=== PATIENT | male | born 1985 | race Caucasian/White ===

== ENCOUNTER 2018-03-14 14:19 | Emergency (ER) | payer OTHER ==
[~2018-03-14] VITALS: Ht 185.4 cm; Wt 99.8 kg
[2018-03-14 16:00] VITALS: BP 145/80
--- NOTE | 2018-03-14 16:14 | PHYS DOC ---
Past Medical History Past Medical History: No Pertinent History Past Surgical History: Other Additional Past Surgical Histo: RLQ bowel surgery age 6 Alcohol Use: None Drug Use: None Adult General Chief Complaint Chief Complaint: ABDOMINAL PAIN HPI HPI Patient is a 32 year old male presents to the ED complaining of abdominal pain times one day. States he noticed he was having left lower quadrant abdominal pain last night around dinnertime. Describes the pain as sharp. Rates the pain as 8 out of 10 at its worst. States the pain is currently a 5 out of 10. Associated symptoms include nausea. Patient has a history of bowel surgery as a kid for twisted bowel. States he usually has some loose stools per his normal. Denies blood in stool, fever, vomiting, chest pain, shortness of breath, rash, recent travel or headache. Review of Systems Review of Systems Constitutional: Denies fever or chills [] Eyes: Denies change in visual acuity, redness, or eye pain [] HENT: Denies nasal congestion or sore throat [] Respiratory: Denies cough or shortness of breath [] Cardiovascular: No additional information not addressed in HPI [] GI: Complains of abdominal pain and nausea. Denies vomiting, bloody stools or diarrhea [] : Denies dysuria or hematuria [] Musculoskeletal: Denies back pain or joint pain [] Integument: Denies rash or skin lesions [] Neurologic: Denies headache, focal weakness or sensory changes [] All other systems were reviewed and found to be within normal limits, except as documented in this note. Current Medications Current Medications Current Medications Medications (Trade) Dose Ordered Sig/Daniel Start Time Stop Time Status Last Admin Dose Admin Acetaminophen/ Hydrocodone Bitart (Lortab 5/325) 1 tab 1X ONCE 03/14/18 17:45 03/14/18 17:46 DC 03/14/18 18:22 1 TAB Info (CONTRAST GIVEN -- Rx MONITORING) 1 each PRN DAILY PRN 03/14/18 16:30 03/14/18 18:27 DC Iohexol (Omnipaque 300 Mg/ml) 75 ml 1X ONCE 03/14/18 16:30 03/14/18 16:31 DC 03/14/18 16:30 75 ML Ketorolac Tromethamine (Toradol 15mg Vial) 15 mg 1X ONCE 03/14/18 16:15 03/14/18 16:16 DC 03/14/18 10:19 15 MG Allergies Allergies Allergies Coded Allergies Type Severity Reaction Last Updated Verified No Known Drug Allergies 03/14/18 No Physical Exam Physical Exam Constitutional: Well developed, well nourished, no acute distress, non-toxic appearance. [] HENT: Normocephalic, atraumatic Eyes: PERRLA, EOMI, conjunctiva normal, no discharge. [] Neck: Normal range of motion, no tenderness, supple, no stridor. [] Cardiovascular:Heart rate regular rhythm, no murmur [] Lungs & Thorax: Bilateral breath sounds clear to auscultation [] Abdomen: Bowel sounds normal, soft, mild LLQ tenderness, no masses, no pulsatile masses. [] Skin: Warm, dry, no erythema, no rash. [] Back: No tenderness, no CVA tenderness. [] Extremities: No tenderness, no cyanosis, no clubbing, ROM intact, no edema. [] Neurologic: Alert and oriented X 3, normal motor function, normal sensory function, no focal deficits noted. [] Psychologic: Affect normal, judgement normal, mood normal. [] Current Patient Data Vital Signs Vital Signs Date Time Temp Pulse Resp B/P (MAP) Pulse Ox O2 Delivery O2 Flow Rate FiO2 03/14/18 18:22 16 03/14/18 16:00 98.4 83 145/80 (101) 98 Room Air 98.4 Lab Values Laboratory Tests Test 03/14/18 16:26 03/14/18 16:35 Urine Collection Type Void Urine Color Yellow Urine Clarity Cloudy Urine pH 7.0 Urine Specific [place] 1.015 Urine Protein Negative mg/dL (NEG-TRACE) Urine Glucose (UA) Negative mg/dL (NEG) Urine Ketones (Stick) Negative mg/dL (NEG) Urine Blood Small (NEG) Urine Nitrite Negative (NEG) Urine Bilirubin Negative (NEG) Urine Urobilinogen Dipstick 0.2 mg/dL (0.2 mg/dL) Urine Leukocyte Esterase Small (NEG) Urine RBC 6-10 /HPF (0-2) Urine WBC 5-10 /HPF (0-4) Urine Squamous Epithelial Cells Few /LPF Urine Bacteria Few /HPF (0-FEW) Urine Hyaline Casts Few /HPF Urine Mucus Mod /LPF Urine Chlamydia DNA (PCR) Negative (Negative) Neisseria gonorrhoeae DNA (PCR) Negative (Negative) White Blood Count 13.6 x10^3/uL (4.0-11.0) H Red Blood Count 4.88 x10^6/uL (4.30-5.70) Hemoglobin 15.5 g/dL (13.0-17.5) Hematocrit 45.5 % (39.0-53.0) Mean Corpuscular Volume 93 fL (79-100) Mean Corpuscular Hemoglobin 32 pg (25-35) Mean Corpuscular Hemoglobin Concent 34 g/dL (31-37) Red Cell Distribution Width 12.2 % (11.5-14.5) Platelet Count 191 x10^3/uL (140-400) Neutrophils (%) (Auto) 76 % (31-73) H Lymphocytes (%) (Auto) 13 % (24-48) L Monocytes (%) (Auto) 9 % (0-9) Eosinophils (%) (Auto) 2 % (0-3) Basophils (%) (Auto) 1 % (0-3) Neutrophils # (Auto) 10.2 x10^3uL (1.8-7.7) H Lymphocytes # (Auto) 1.8 x10^3/uL (1.0-4.8) Monocytes # (Auto) 1.2 x10^3/uL (0.0-1.1) H Eosinophils # (Auto) 0.2 x10^3/uL (0.0-0.7) Basophils # (Auto) 0.1 x10^3/uL (0.0-0.2) Sodium Level 137 mmol/L (136-145) Potassium Level 3.9 mmol/L (3.5-5.1) Chloride Level 104 mmol/L (98-107) Carbon Dioxide Level 25 mmol/L (21-32) Anion Gap 8 (6-14) Blood Urea Nitrogen 7 mg/dL (8-26) L Creatinine 1.0 mg/dL (0.7-1.3) Estimated GFR (Cockcroft-Gault) 87.7 BUN/Creatinine Ratio 7 (6-20) Glucose Level 101 mg/dL (70-99) H Calcium Level 9.1 mg/dL (8.5-10.1) Total Bilirubin 0.8 mg/dL (0.2-1.0) Aspartate Amino Transferase (AST) 27 U/L (15-37) Alanine Aminotransferase (ALT) 43 U/L (16-63) Alkaline Phosphatase 100 U/L (46-116) Total Protein 7.1 g/dL (6.4-8.2) Albumin 4.3 g/dL (3.4-5.0) Albumin/Globulin Ratio 1.5 (1.0-1.7) Lipase 133 U/L (73-393) Laboratory Tests 03/14/18 16:35 Laboratory Tests 03/14/18 16:35 EKG EKG [] Radiology/Procedures Radiology/Procedures PROCEDURE: CT ABD PELV W/ IV CONTRST ONLY PQRS Compliance statement: One or more of the following individualized dose reduction techniques were utilized for this examination: 1. Automated exposure control. 2. Adjustment of the mA and/or kV according to patient size. 3. Use of iterative reconstruction technique. Indication:LLQ PAIN TODAY. IV OMNI 300 75 MLS. NO PREVIOUS. TECHNIQUE: CT abdomen and pelvis with IV contrast with multiplanar reformats. COMPARISON: None FINDINGS: Heart is normal in size. No pericardial or pleural effusion. Clear lung bases. Liver, spleen, gallbladder, pancreas, adrenals and right kidney are within normal limits. The left kidney is edematous with mild hydroureteronephrosis secondary to 3 obstructing stones in the distal ureter and at the UVJ, the largest measuring 5 mm. No enlarged retroperitoneal or pelvic adenopathy. No free pelvic fluid or ascites. The prostate and seminal vesicles show no large mass. No bowel obstruction. 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 Urinary bladder is within normal limits. No pneumoperitoneum. No suspicious bony lesion. IMPRESSION: 1. Multiple obstructing stones in the distal left ureter causing mild hydroureteronephrosis as described above. 2. Incidental findings as described above.[] Course & Med Decision Making Course & Med Decision Making Pertinent Labs and Imaging studies reviewed. (See chart for details) []Patient's pain improved in the ED. Discussed lab and imaging findings with patient. On reexamination, abdomen is soft nontender nondistended. No peritoneal signs. Tolerating by mouth. Will discharge with Flomax, antibiotics, analgesics. Discussed follow-up this week. Patient is incarcerated but has access to medical care. Discussed reasons to return to the ED. Patient understands and agrees with plan. Adalberto Disclaimer Adalberto Disclaimer This electronic medical record was generated, in whole or in part, using a voice recognition dictation system. Departure Departure Impression: Primary Impression: Kidney stone Disposition: 01 HOME, SELF-CARE Condition: IMPROVED Referrals: UNKNOWN PCP NAME (PCP) JERRI MOJICA MD, MICHAEL M MD Patient Instructions: Kidney Stones Scripts Ibuprofen (IBUPROFEN) 800 Mg Tablet 800 MG PO PRN Q6HRS PRN for INFLAMMATION, #14 TAB Prov: JERRI DREW 03/14/18 Hydrocodone/Apap 5-325 (NORCO 5-325 TABLET) 1 Each Tablet 1 TAB PO TID for 2 Days, #6 TAB Prov: JERRI DREW 03/14/18 Tamsulosin Hcl (FLOMAX) 0.4 Mg Cap.er.24h 1 CAP PO DAILY for 7 Days, #7 CAP 0 Refills Prov: JERRI DREW 03/14/18 Ciprofloxacin Hcl (CIPRO) 500 Mg Tablet 1 TAB PO BID for 7 Days, #14 TAB Prov: JERRI DREW 03/14/18 JERRI DREW Mar 14, 2018 16:14
[2018-03-14] MEDS ORDERED: KETOROLAC 15 MG/ML VIAL. IV ONE (16:15)
[2018-03-14] MEDS ORDERED: IOHEXOL 300 MG/ML 100ML VIAL. IV ONE (16:30)
[2018-03-14] MEDS ORDERED: CONTRAST GIVEN. MC PRN (16:30)
[2018-03-14 16:36] LABS: BILIRUBIN,URINE NEGATIVE (NEG); CLARITY,URINE CLOUDY; COLOR,URINE YELLOW; NITRITE,URINE NEGATIVE (NEG); PROTEIN,URINE NEGATIVE (NEG-TRACE); UROBILINOGEN,URINE 0.2 mg/dL (0.2 mg/dL)
[2018-03-14 16:42] LABS: BASO # 0.1 x10^3/uL (0.0-0.2); BASO % 1 % (0-3); EOS # 0.2 x10^3/uL (0.0-0.7); EOS % 2 % (0-3); HEMATOCRIT 45.5 % (39.0-53.0); HEMOGLOBIN 15.5 g/dL (13.0-17.5); LYMPH # 1.8 x10^3/uL (1.0-4.8); LYMPH % 13 % (24-48); MEAN CORPUSCULAR HEMOGLOBIN 32 pg (25-35); MEAN CORPUSCULAR HGB CONC 34 g/dL (31-37); MEAN CORPUSCULAR VOLUME 93 fL (79-100); MONO # 1.2 x10^3/uL (0.0-1.1); MONO % 9 % (0-9); NEUT # 10.2 x10^3uL (1.8-7.7); NEUT % 76 % (31-73); PLATELET COUNT 191 x10^3/uL (140-400); RED BLOOD COUNT 4.88 x10^6/uL (4.30-5.70); RED CELL DISTRIBUTION WIDTH 12.2 % (11.5-14.5); WHITE BLOOD COUNT 13.6 x10^3/uL (4.0-11.0)
[2018-03-14 16:50] LABS: CALCIUM 9.1 mg/dL (8.5-10.1); GFR 87.7; POTASSIUM 3.9 mmol/L (3.5-5.1)
[2018-03-14 16:56] LABS: ALBUMIN 4.3 g/dL (3.4-5.0); ALBUMIN/GLOBULIN RATIO 1.5 (1.0-1.7); TOTAL BILIRUBIN 0.8 mg/dL (0.2-1.0); TOTAL PROTEIN 7.1 g/dL (6.4-8.2)
[2018-03-14 16:56] LABS: BACTERIA,URINE FEW /HPF (0-FEW); HYALINE CASTS, URINE FEW /HPF; SQUAMOUS EPITHELIAL CELL,UR FEW /LPF
--- NOTE | 2018-03-14 17:18 | RAD ---
PQRS Compliance statement: One or more of the following individualized dose reduction techniques were utilized for this examination: 1. Automated exposure control. 2. Adjustment of the mA and/or kV according to patient size. 3. Use of iterative reconstruction technique. Indication:LLQ PAIN TODAY. IV OMNI 300 75 MLS. NO PREVIOUS. TECHNIQUE: CT abdomen and pelvis with IV contrast with multiplanar reformats. COMPARISON: None FINDINGS: Heart is normal in size. No pericardial or pleural effusion. Clear lung bases. Liver, spleen, gallbladder, pancreas, adrenals and right kidney are within normal limits. The left kidney is edematous with mild hydroureteronephrosis secondary to 3 obstructing stones in the distal ureter and at the UVJ, the largest measuring 5 mm. No enlarged retroperitoneal or pelvic adenopathy. No free pelvic fluid or ascites. The prostate and seminal vesicles show no large mass. No bowel obstruction. 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 Urinary bladder is within normal limits. No pneumoperitoneum. No suspicious bony lesion. IMPRESSION: 1. Multiple obstructing stones in the distal left ureter causing mild hydroureteronephrosis as described above. 2. Incidental findings as described above. Electronically signed by: James Lopez DO (03/14/2018 5:15 PM) [facility]
[2018-03-14] MEDS ORDERED: IBUP-1060 PO (17:34)
[2018-03-14] MEDS ORDERED: CIPR500T94 PO (17:34)
[2018-03-14] MEDS ORDERED: HYDR-971 PO (17:34)
[2018-03-14] MEDS ORDERED: TAMS0.4C97 PO (17:34)
[2018-03-14] MEDS ORDERED: HYDROcodone/APAP 5/325MG 1 TAB TABLET PO ONE (17:45)
== END 2018-03-14 18:27 | disposition home or self-care (01) ==
LOC: ER 14:19 → EEVIPCON 14:19 → ER 18:27
DX: N20.0 Calculus of kidney (principal)
CPT/HCPCS: 36415; 74177; 80053; 81001; 83690; 85025; 87491; 87591; 96374; 96375; 99285; J1885; Q9967